=== PATIENT | male | born 1955 | race Caucasian/White ===

== ENCOUNTER → 2017-07-10 | Outpatient (CLI) | payer OTHER ==
--- NOTE | 2017-07-10 10:31 | DIAGNOSTIC IMAGING REPORT ---
ORBIT RADIOGRAPHS 3 VIEWS HISTORY: pre-MRI screening. COMPARISON: None. FINDINGS: There are no radiopaque foreign bodies identified within the orbits. IMPRESSION: No radiopaque foreign bodies identified within the orbits. Electronically signed by: Adam Xie M.D. 07/10/2017 10:30 AM Dictated Date/Time: 07/10/2017 10:30 AM
--- NOTE | 2017-07-10 11:25 | DIAGNOSTIC IMAGING REPORT ---
MRI THE RIGHT KNEE NO CONTRAST CLINICAL HISTORY: Right knee pain status post trauma. Possible meniscal tear. COMPARISON STUDY: None FINDINGS: Imaging was performed in sagittal, coronal, and axial planes. There are no areas of marrow edema to indicate occult fracture or bone bruise. The quadriceps and patellar tendons appear intact. The anterior posterior cruciate ligaments appear intact. The patellar retinacular structures appear intact. No tears a lateral meniscus are visualized. There is a longitudinal tear the posterior horn the medial meniscus. There is a small popliteal cyst. The medial and lateral collateral ligaments appear intact. IMPRESSION: Tear of the posterior horn of the medial meniscus. Electronically signed by: Adam Xie M.D. 07/10/2017 11:24 AM Dictated Date/Time: 07/10/2017 11:20 AM
== END | disposition home or self-care (01) ==
LOC: C.RADBC 10:16
PROVIDERS: ATTEND Orthopaedic Surgery
DX: S83.241A Other tear of medial meniscus, current injury, right knee, initial encounter (principal); X58.XXXA Exposure to other specified factors, initial encounter; Z13.89 Encounter for screening for other disorder

== ENCOUNTER → 2017-10-10 | Outpatient (CLI) | payer OTHER | END | disposition home or self-care (01) | LOC: C.PATHSPEC 17:10 | PROVIDERS: ATTEND Urology | DX: N28.1 Cyst of kidney, acquired (principal) ==

== ENCOUNTER → 2017-11-20 | Outpatient (CLI) | payer OTHER ==
[~2017-11-20] MED LIST: OPTIRAY 320 IV PRN
--- NOTE | 2017-11-20 10:00 | DIAGNOSTIC IMAGING REPORT ---
CT SCAN OF THE ABDOMEN AND PELVIS COMBO RENAL MASS PROTOCOL CLINICAL HISTORY: Renal cyst. COMPARISON STUDY: Abdominal CT dated 09/11/2017. TECHNIQUE: Before and following the IV administration of 94 cc of Optiray 320, CT scan of the abdomen and pelvis is performed from the lung bases to the proximal femora using the renal mass protocol. Images are reviewed in the axial, sagittal, and coronal planes. IV contrast was administered without complication. A dose lowering technique was utilized adhering to the principles of ALARA. CT DOSE: 2094.88 mGycm FINDINGS: Lung bases: The heart is normal in size and without pericardial effusion. The lung bases are clear noting dependent atelectasis. Mild gynecomastia is noted. There is a small hiatal hernia. Liver: The contrast-enhanced liver is normal in size, contour, and attenuation. There is no intrahepatic biliary ductal dilatation. The hepatic veins and portal veins are patent. Gallbladder: Unremarkable. Spleen: Normal in size and attenuation. Pancreas: Unremarkable. Adrenal glands: Unremarkable. Kidneys: The contrast enhanced kidneys are normal in size and without hydronephrosis. No renal calculi are identified on the unenhanced series. The kidneys enhance and excrete symmetrically. There is no enhancing renal cortical mass. A multiloculated cystic lesion versus numerous adjacent cysts arising from the upper pole of the left kidney measures up to 9.6 cm in aggregate dimension. This contains thin (barely perceptible) internal septations, some of which are calcified. A smaller similar-appearing cystic lesion in the lower pole of the right kidney measures up to 7.0 cm. There are numerous additional bilateral simple cysts. Subcentimeter cortical hypodensities also likely represent cysts but are too small for definitive characterization. There is no evidence of urothelial lesion within the renal pelvis bilaterally or involving the ureters. Abdominal vasculature: The abdominal aorta is normal in course and caliber noting mild atherosclerotic calcification. Bowel: The small bowel and colon are normal in course and caliber. The appendix is well-visualized and normal. Peritoneum: There is no intraperitoneal free air or abdominal ascites. Lymphadenopathy: None. Pelvic viscera: There is median lobe hypertrophy of the prostate gland. The bladder wall is mildly thickened and trabeculated suggesting chronic outlet obstruction. A small fat-containing left inguinal hernia is noted. Skeletal structures: No lytic or blastic lesions are seen. There is mild lumbosacral spondylosis. IMPRESSION: 1. There is no enhancing renal cortical mass. 2. There is a 9.6 cm water attenuation lesion arising from the upper pole of the left kidney. This contains thin (barely perceptible) internal septations, some which contain thin calcifications. A similar-appearing 7.0 cm cyst arises from the lower pole of the right kidney. These are consistent with Bosniak 2 cysts. 3. Additional simple cysts are present in both kidneys. 4. There is median lobe hypertrophy of the prostate gland with evidence of chronic bladder outlet obstruction. 5. Additional findings as above. Electronically signed by: David Nunes M.D. 11/20/2017 9:58 AM Dictated Date/Time: 11/20/2017 9:46 AM
== END | disposition home or self-care (01) ==
LOC: C.CTS 09:12
PROVIDERS: ATTEND Urology
DX: N28.1 Cyst of kidney, acquired (principal)